=== PATIENT | male | born 1970 | race African-American/Black ===

== ENCOUNTER 2018-09-28 03:00 | Inpatient (IN) | payer MEDICARE, MEDICAID ==
[~2018-09-28] VITALS: Ht 167.6 cm; Wt 82.6 kg
--- NOTE | 2018-09-28 04:42 | NUR ---
PT BIBA, AOX3 C/C OTHER COMPLAINTS, PLACED ON ER BED 3, SEEN AND EVAL BY ER MD JORDAN, LAB WORKS ORDERED, VS STABLE, WILL AWAIT FOR FURTHER EVAL.
[2018-09-28 05:35] LABS: CALCIUM, SERUM 8.9 mg/dL (8.5-10.1); POTASSIUM 4.6 mmol/L (3.5-5.1)
[2018-09-28 05:38] LABS: CREATININE 8.1 mg/dL (0.6-1.3)
[2018-09-28 05:46] LABS: BASOPHILS # (AUTO) 0.2 /CMM (0.0-0.2); BASOPHILS % (AUTO) 2.2 % (0.0-2.0); EOSINOPHILS % (AUTO) 1.3 % (0.0-6.0); HEMATOCRIT 34 % (39-51); HEMOGLOBIN 11.2 g/dL (13.5-17.5); LYMPHOCYTES # (AUTO) 0.6 /CMM (0.8-4.8); LYMPHOCYTES % (AUTO) 7.7 % (20.0-44.0); MEAN CORPUSCULAR HGB CONC 33 g/dl (31.0-36.0); MEAN CORPUSCULAR VOLUME 94 fL (80-96); MONOCYTES # (AUTO) 1.2 /CMM (0.1-1.30); MONOCYTES % (AUTO) 15.3 % (2.0-12.0); NEUTROPHILS # (AUTO) 5.6 /CMM (1.8-8.9); NEUTROPHILS % (AUTO) 73.5 % (43.0-81.0); PLATELET COUNT (AUTO) 149 /CMM (150-450); RED BLOOD CELL COUNT(AUTO) 3.64 MIL/uL (4.5-6.0); WHITE BLOOD COUNT (AUTO) 7.6 K/uL (4.3-11.0)
--- NOTE | 2018-09-28 07:07 | NUR ---
CALLED [facility] FOR PANEL CALL AND ASIA FOSTER WAS PAGED.
--- NOTE | 2018-09-28 09:26 | NUR ---
REPORT GIVEN TO ROSIE HARDIN
--- NOTE | 2018-09-28 09:45 | NUR ---
RN NOTE RECEIVED PT FROM ER, AMBULATORY, AOX1, DOES NOT KNOW WHERE HE IS, WHERE HE LIVES, CLAIMS THAT HE DID NOT GET HD, DOES NOT WHY, AND WAS LEFT ON THE STREET DUE TO HD CENTER WAS CLOSED. VS STABLE, NO IV ACCESS, R UA AV SHUNT, INTACT, BRUIT PRESENT, ONLY ONE SCAB ON RIGHT FOOT NOTED. POOR HISTORIAN. WILL FOLLOW UP WITH MD, HD CENTER LATER. CALLL IGHT WITHIN REACH, BED IN LOCKED AND LOW POSITION, SIDE RAILS UPX2.
[2018-09-28 10:00] VITALS: BP 143/93
[2018-09-28 12:00] VITALS: BP 138/91
[2018-09-28] MEDS ORDERED: DEXTROSE 50%-WATER 50 ML DISP.SYRIN IV PRN (12:30)
[2018-09-28] MEDS: BLOOD SUGAR DIAGNOSTIC 1 EACH STRIP IN SCH ×3 (13:23→21:50)
[2018-09-28] MEDS: INSULIN REGULAR, HUMAN 100 UNIT/ML 3 ML VIAL SQ PRN ×2 (13:25→22:05)
[2018-09-28 16:00] VITALS: BP 155/97
[2018-09-28] MEDS ORDERED: Z GUARD REMEDY 2 OZ OINT TP PRN (17:00)
[2018-09-28] MEDS ORDERED: ONDANSETRON HCL/PF 4 MG/2 ML VIAL IVP PRN (17:00)
[2018-09-28] MEDS ORDERED: MAGNESIUM HYDROXIDE 30 ML UDC PO PRN (17:00)
[2018-09-28] MEDS ORDERED: ACETAMINOPHEN 325 MG TABLET PO PRN (17:00)
[2018-09-28] MEDS ORDERED: HYDROCODONE/APAP 5/325MG 1 EACH TABLET PO PRN (17:00)
--- NOTE | 2018-09-28 18:04 | NUR ---
RN NOTE PT HAS NO IV ACCESS, VERY HARD STICK, IV ATTEMPTED X1, MD AWARE, NO NEED FOR IV AT THIS TIME, POSSIBLE D/C TOMORROW. PT STABLE, HAD HD TODAY 2500 ML OUT.
--- NOTE | 2018-09-28 18:14 | NUR ---
RN NOTE PT REFUSED BLOOD GLUCOSE CHECK AT 1730, RISKS AND BENEFITS EXPLAINED, PT STILL REFUSED, STATING "I AM DOING FINE."
[2018-09-28 20:00] VITALS: BP 150/99
--- NOTE | 2018-09-28 20:00 | NUR ---
RN/MS NOTES: RECEIVED PT. IN BED ALERT AND ORIENTED X 1. DENIES ANY C/O CHEST PAIN OR SOB AT PRESENT. CONTINENT OF B/B. PT. HAS AV SHUNT ON BOOGIE INTACT W/ + BRUIT AND THRILL. CALL LIGHT W/ REACH. ALL NEEDS MEET. WILL CONTINUE TO MONITOR. BEDS LOCKED AND IN LOW POSITION.
[2018-09-28] MEDS: ZOLPIDEM TARTRATE 5 MG TABLET PO PRN (23:36)
[2018-09-29 04:00] VITALS: BP 150/99
--- NOTE | 2018-09-29 07:30 | NUR ---
RN OPENING NOTE PATIENT RECEIVED IN BED AWAKE. PATIENT AWAKE AAOX4. PATIENT HAS NO C/O PAIN, NO S/S OF DISTRESS. NO S/S OF /SOB. RN WILL CONTINUE TO MONITOR CLOSELY. EKG DONE AT BEDSIDE. ALL NEEDS ATTENDED, BED IN LOWEST LOCKED POSITION, SIDE RAILS UP X 2 CALL LIGHT AT HAND.
--- NOTE | 2018-09-29 07:32 | NUR ---
RN OPENING NOTES RECEIVED PT AWAKE IN BED IN NO ACUTE SIGNS OF DISTRESS. A/O X2-3. ABLE TO MAKE NEEDS KNOWN, NO C/O PAIN OR DISCOMFORTS AT THIS TIME. PT NOTED TO BE FORGETFUL AND DOESN'T KNOW WHERE HE LIVES. ON 02 VIA N/C @ 1LPM, BREATHING EVEN AND UNLABORED. PT WITH BOOGIE AV SHUNT WITH POSITIVE BRUIT SOUNDS AND NO ACTIVE BLEEDING NOTED AT SITE. SAFETY PRECAUTIONS IN PLACE. BED IN LOW LOCKED POSITION WITH SR UP X2. CALL LIGHT WITHIN REACH. WILL CONTINUE TO MONITOR.
--- NOTE | 2018-09-29 07:41 | NUR ---
RN/MS NOTES: REPORT GIVEN TO NEXT SHIFT NURSE FOR JANICE.
[2018-09-29] MEDS: BLOOD SUGAR DIAGNOSTIC 1 EACH STRIP IN SCH ×4 (07:46→21:25)
[2018-09-29] MEDS: INSULIN REGULAR, HUMAN 100 UNIT/ML 3 ML VIAL SQ PRN ×3 (07:47→21:25)
[2018-09-29 08:00] VITALS: BP 133/91
--- NOTE | 2018-09-29 10:12 | NUR ---
WOUND CARE CONSULT: PT PRESENTS WITH RT DORSAL FOOT DRY SCAB, PRESENT ON ADMISSION. NO DRAINAGE OR TENDERNESS NOTED. PT IS CONTINENT AT THIS TIME. ALL SKIN PROTECTION RECOMMENDATIONS DISCUSSED WITH NURSING STAFF. WILL SEE PRN. CURRENT MAUDE SCORE IS 20. Addendum: 09/29/18 at 1014 by DIANNA MALIN WNDNU Amended: Links added.
--- NOTE | 2018-09-29 10:45 | NUR ---
SW has spoken with case management regarding consult received for pt. CM will process pt's consult.
--- NOTE | 2018-09-29 12:04 | NUR ---
RN NOTES RECEIVED CALL FROM [facility] AND STATED THAT PT LIVES IN [facility]. SHE STATED THAT PT HAD SCHEDULED DIALYSIS ON 09/27/2018 BUT DIDN'T SHOW UP.
--- NOTE | 2018-09-29 13:29 | NUR ---
RN NOTES RECEIVED CALL FROM [facility] DEP'T THAT PT IS POSITIVE OF MRSA OF RIGHT NARE. CONTACT PRECAUTIONS INITIATED. INFORMED CHARGE NURSE. WILL CONTINUE TO MONITOR
[2018-09-29 16:00] VITALS: BP 131/90
[2018-09-29 18:03] LABS: BASOPHILS # (AUTO) 0.1 /CMM (0.0-0.2); EOSINOPHILS % (AUTO) 0.7 % (0.0-6.0); HEMATOCRIT 33 % (39-51); HEMOGLOBIN 10.5 g/dL (13.5-17.5); LYMPHOCYTES # (AUTO) 3.9 /CMM (0.8-4.8); LYMPHOCYTES % (AUTO) 59.9 % (20.0-44.0); MEAN CORPUSCULAR HGB CONC 32 g/dl (31.0-36.0); MEAN CORPUSCULAR VOLUME 93 fL (80-96); MONOCYTES # (AUTO) 0.4 /CMM (0.1-1.30); MONOCYTES % (AUTO) 5.7 % (2.0-12.0); NEUTROPHILS # (AUTO) 2.1 /CMM (1.8-8.9); NEUTROPHILS % (AUTO) 32.7 % (43.0-81.0); PLATELET COUNT (AUTO) 154 /CMM (150-450); RED BLOOD CELL COUNT(AUTO) 3.53 MIL/uL (4.5-6.0); WHITE BLOOD COUNT (AUTO) 6.4 K/uL (4.3-11.0)
[2018-09-29 18:19] LABS: ALBUMIN 3.3 g/dL (3.4-5.0); BILIRUBIN,TOTAL 0.5 mg/dL (0.2-1.0); POTASSIUM 5.2 mmol/L (3.5-5.1); TOTAL PROTEIN, SERUM 7.5 g/dL (6.4-8.2)
--- NOTE | 2018-09-29 18:33 | NUR ---
RN CLOSING NOTES PATIENT IN BED AWAKE AND WATCHING TV. HOB ELEVATED. A/O X2-3. ABLE TO MAKE NEEDS KNOWN. PT WITH PERIODS OF FORGETFULNESS NOTED, RE-ORIENTED PRN. ON SUPPLEMENTAL 02 VIA N/C @ 1LPM, TOLERATING WELL WITH NO ACUTE RESPIRATORY DISTRESS NOTED. BOOGIE AV SHUNT NOTED WITH POSITIVE BRUIT SOUNDS AND NO ACTIVE BLEEDING NOTED AT SITE. ALL SAFETY PRECAUTIONS IN PLACE. BED IN LOW LOCKED POSITION WITH SR UP X2. CALL LIGHT WITHIN REACH. ALL NEEDS AND CARE ATTENDED WELL. WILL ENDORSE TO [facility] DRIVER NURSE FOR JANICE.
--- NOTE | 2018-09-29 18:35 | NUR ---
RN NOTES/LAB RESULTS RECEIVED CALL FROM LAB THAT PT'S HAS ELEVATED CREATININE 8.0, LOT ATTENDANT CRISTIAN MADE AWARE WITH NO NEW ORDERS MADE AT THIS TIME. WILL CONTINUE TO MONITOR.
--- NOTE | 2018-09-29 19:10 | NUR ---
MS/RN INITIAL NOTES RECEIVED PT IN BED, A/OX2, ON 1L O2 VIA NC, TOLERATING WELL, NO SOB NOTED. DENIES PAIN AT THIS TIME. HOB ELEVATED. NO IV ACCESS NOTED. MD AWARE PER AM RN. WITH BOOGIE AV SHUNT. SAFETY MEASURES IN PLACED. CALL LIGHT WITHIN EASY REACH. WILL CONT TO MONITOR
[2018-09-29 20:00] VITALS: BP 144/102
[2018-09-29] MEDS: MUPIROCIN OINT 2% 22 GM TUBE SCH (20:49)
[2018-09-30] MEDS: ZOLPIDEM TARTRATE 5 MG TABLET PO PRN ×2 (00:47→22:37)
[2018-09-30 04:00] VITALS: BP 143/99
--- NOTE | 2018-09-30 06:45 | NUR ---
RN NOTES PT IN STABLE CONDITION. NO ACUTE CHANGES NOTED THROUGHOUT SHIFT. SAFETY MEASURES OBSERVED AT ALL TIMES. ALL NEEDS ANTICIPATED. ENDORSED TO AM SHIFT RN FOR JANICE
[2018-09-30 08:00] VITALS: BP 134/94
--- NOTE | 2018-09-30 08:00 | NUR ---
MS RN NOTE PATIENT IN BED , ALL NEEDS ATTENDED ON IVF ORDERED. ON RA NO SOB NOTED, RUBI MID LINE IN PLACE , ,BED IN LOWEST AND LOCKED POSITION , BLOOD SUGAR 322 MG\DL INSULIN COVERAGE GIVEN , DILAUDID 2 MG PO GIVEN ORDERED, PLAN OF CARE DISCUSSED WITH PATIENT, WILL CONT TO MONITOR CLOSELY Addendum: 09/30/18 at 1329 by EGO AMARO RN wrong chart as above
--- NOTE | 2018-09-30 08:00 | NUR ---
ms rn note patient in bed , all needs attended ,on 1l of nc , no sob noted , rt upper arm av shunt in place with bruit sound , will have hd today , bed in lowest and locked, plan of care discussed with patent , blood sugar checked 103 mg\ dl ,will cont to monitor closely position ,
[2018-09-30] MEDS: BLOOD SUGAR DIAGNOSTIC 1 EACH STRIP IN SCH ×4 (08:05→21:51)
[2018-09-30] MEDS: MUPIROCIN OINT 2% 22 GM TUBE SCH ×2 (08:05→21:51)
[2018-09-30 08:42] LABS: CALCIUM, SERUM 8.9 mg/dL (8.5-10.1); MAGNESIUM 1.9 mg/dL (1.8-2.4); PHOSPHORUS 3.3 mg/dL (2.5-4.9); POTASSIUM 4.9 mmol/L (3.5-5.1)
[2018-09-30 08:43] LABS: CREATININE 8.5 mg/dL (0.6-1.3)
[2018-09-30 08:45] LABS: BASOPHILS # (AUTO) 0.1 /CMM (0.0-0.2); BASOPHILS % (AUTO) 1.7 % (0.0-2.0); EOSINOPHILS % (AUTO) 1.4 % (0.0-6.0); HEMATOCRIT 34 % (39-51); LYMPHOCYTES % (AUTO) 38.7 % (20.0-44.0); MEAN CORPUSCULAR HGB CONC 32 g/dl (31.0-36.0); MEAN CORPUSCULAR VOLUME 94 fL (80-96); MONOCYTES # (AUTO) 0.8 /CMM (0.1-1.30); MONOCYTES % (AUTO) 10.9 % (2.0-12.0); NEUTROPHILS # (AUTO) 3.7 /CMM (1.8-8.9); NEUTROPHILS % (AUTO) 47.3 % (43.0-81.0); PLATELET COUNT (AUTO) 153 /CMM (150-450); RED BLOOD CELL COUNT(AUTO) 3.63 MIL/uL (4.5-6.0); WHITE BLOOD COUNT (AUTO) 7.7 K/uL (4.3-11.0)
[2018-09-30 09:00] LABS: LYMPHOCYTES % (MANUAL) 38 % (16-48); MONOCYTES % (MANUAL) 10 % (0-11.0); NEUTROPHILS % (MANUAL) 52 (42-76)
--- NOTE | 2018-09-30 09:08 | NUR ---
MS HARDIN NOTE PER DR ALYSE MONCADA TO HAVE DOUBLE PORTION PER [facility] Addendum: 09/30/18 at 1118 by GEO AMARO RN ok to have double portion of food per patient request
[2018-09-30 10:00] VITALS: BP 134/94
--- NOTE | 2018-09-30 11:19 | NUR ---
MS RN NOTE HD STARTED ORDERED ,WILL CONT TO MONITOR CLOSE
--- NOTE | 2018-09-30 12:26 | NUR ---
MS RN NOTE PER FRANC DALTON DNP OK TO HAVE DOUBLE PORTION RENAL DIET
--- NOTE | 2018-09-30 13:48 | NUR ---
MS RN NOTE STILL ON HD , WILL F\U
--- NOTE | 2018-09-30 13:59 | NUR ---
MS RN NOTE HD COMPLETED. 2L OF FLUIDS OUT , BP 147/99 HR 97, WILL CONT TO MONITOR CLOSELY
[2018-09-30 16:00] VITALS: BP 130/96
[2018-09-30] MEDS: INSULIN REGULAR, HUMAN 100 UNIT/ML 3 ML VIAL SQ PRN ×2 (17:47→21:47)
--- NOTE | 2018-09-30 19:10 | NUR ---
MS/RN INITIAL NOTES RECEIVED PT IN BED, A/OX3. NO C/O PAIN AT THIS TIME. ON ROOM AIR TOLERATING WELL. NO SOB NOTED. NO C/O PAIN AT THIS TIME. BOOGIE AV SHUNT + BRUIT AND THRILL. NO BLEEDING ON SITE NOTED. SAFETY MEASURES IN PLACED CALL LIGHT WITHIN EASY REACH. WILL CONT TO MONITOR
[2018-09-30 20:00] VITALS: BP 143/98
--- NOTE | 2018-09-30 22:30 | NUR ---
RN NOTES RECEIVED PT IN BED, AWAKE, ALERT AND VERBALLY RESPONSIVE. PT NOTED WITH NO SOB, BREATHING EVEN AND UNLABORED. VERBALIZED HE NEEDS HIS SLEEPING PILL. ALL PATIENT' S NEEDS ATTENDED TO AT THIS TIME. PLACED CALL LIGHT WITHIN EASY REACH. WILL CONTINUE TO MONITOR PT.
[2018-10-01 04:00] VITALS: BP 133/91
--- NOTE | 2018-10-01 06:40 | NUR ---
RN CLOSING NOTES PATIENT IN BED, ASLEEP BUT EASILY AROUSABLE, NO DISTRESS AT THIS TIME, NO SOB, BREATHING EVEN AND UNLABORED. PT DENIES PAIN, PLACED CALL LIGHT WITHIN EASY REACH AND BED IN LOW POSITION AND LOCKED IN PLACE. WILL ENDORSE TO AM SHIFT NURSE FOR CONTINUITY OF CARE.
[2018-10-01 06:58] LABS: BASOPHILS # (AUTO) 0.1 /CMM (0.0-0.2); BASOPHILS % (AUTO) 2.2 % (0.0-2.0); EOSINOPHILS % (AUTO) 1.3 % (0.0-6.0); HEMATOCRIT 33 % (39-51); HEMOGLOBIN 10.8 g/dL (13.5-17.5); LYMPHOCYTES # (AUTO) 2.1 /CMM (0.8-4.8); LYMPHOCYTES % (AUTO) 37.1 % (20.0-44.0); MEAN CORPUSCULAR HGB CONC 33 g/dl (31.0-36.0); MEAN CORPUSCULAR VOLUME 93 fL (80-96); MONOCYTES # (AUTO) 0.6 /CMM (0.1-1.30); MONOCYTES % (AUTO) 11.1 % (2.0-12.0); NEUTROPHILS # (AUTO) 2.8 /CMM (1.8-8.9); NEUTROPHILS % (AUTO) 48.3 % (43.0-81.0); PLATELET COUNT (AUTO) 136 /CMM (150-450); RED BLOOD CELL COUNT(AUTO) 3.58 MIL/uL (4.5-6.0); WHITE BLOOD COUNT (AUTO) 5.8 K/uL (4.3-11.0)
[2018-10-01 07:26] LABS: ALBUMIN 3.5 g/dL (3.4-5.0); BILIRUBIN,TOTAL 0.6 mg/dL (0.2-1.0); CALCIUM, SERUM 8.9 mg/dL (8.5-10.1); PHOSPHORUS 3.5 mg/dL (2.5-4.9); POTASSIUM 4.9 mmol/L (3.5-5.1); TOTAL PROTEIN, SERUM 7.7 g/dL (6.4-8.2)
[2018-10-01 07:27] LABS: CREATININE 7.8 mg/dL (0.6-1.3)
[2018-10-01 07:29] LABS: LYMPHOCYTES % (MANUAL) 24 % (16-48); MONOCYTES % (MANUAL) 11 % (0-11.0); NEUTROPHILS % (MANUAL) 62 (42-76)
[2018-10-01 07:30] LABS: EOSINOPHILS % (MANUAL) 3 % (0-4)
[2018-10-01 08:00] VITALS: BP 150/105
[2018-10-01] MEDS: BLOOD SUGAR DIAGNOSTIC 1 EACH STRIP IN SCH ×5 (08:23→21:23)
[2018-10-01] MEDS: MUPIROCIN OINT 2% 22 GM TUBE SCH ×3 (08:27→21:20)
[2018-10-01] MEDS: INSULIN REGULAR, HUMAN 100 UNIT/ML 3 ML VIAL SQ PRN ×3 (08:27→17:06)
--- NOTE | 2018-10-01 08:45 | NUR ---
MS RN INITIAL NOTES Patient is up sitting in bed, had breakfast with fair appetite. Oxygen sat 92% on 2L/min via NC, denies pain. Patient is A/O x2 with confusion, maintained safety, will cont to monitor.
[2018-10-01 17:33] VITALS: BP 145/110
[2018-10-01 18:00] VITALS: BP 117/73
--- NOTE | 2018-10-01 18:20 | NUR ---
MS RN CLOSING NOTES Patient ambulating independently, standby assist. ACCU check ACHS with insulin parameters. Had shower today, denies any pain. Good appetite. Remained on contact precaution MRSA nares, PPE utilized. Creatinine trending down, HD in am, nephrology following. Will endorse to oncoming RN.
--- NOTE | 2018-10-01 20:00 | NUR ---
RN INITIAL NOTES RECEIVED PT IN BED, A/OX3. NO C/O PAIN AT THIS TIME. ON ROOM AIR TOLERATING WELL. NO SOB NOTED. NO IV. BOOGIE AV SHUNT + BRUIT AND THRILL. NO BLEEDING ON SITE NOTED. SAFETY MEASURES IN PLACED CALL LIGHT WITHIN EASY REACH. WILL CONT TO MONITOR.
--- NOTE | 2018-10-01 21:00 | NUR ---
RN NOTES PT REFUSED ACCU CHECK AND NASAL OINTMENT. CHARGE NURSE MADE AWARE.
[2018-10-01] MEDS: ZOLPIDEM TARTRATE 5 MG TABLET PO PRN (23:37)
[2018-10-02 06:30] LABS: BASOPHILS # (AUTO) 0.2 /CMM (0.0-0.2); BASOPHILS % (AUTO) 2.6 % (0.0-2.0); EOSINOPHILS % (AUTO) 0.8 % (0.0-6.0); HEMATOCRIT 33 % (39-51); HEMOGLOBIN 10.6 g/dL (13.5-17.5); LYMPHOCYTES # (AUTO) 3.2 /CMM (0.8-4.8); LYMPHOCYTES % (AUTO) 51.9 % (20.0-44.0); MEAN CORPUSCULAR HGB CONC 32 g/dl (31.0-36.0); MEAN CORPUSCULAR VOLUME 93 fL (80-96); MONOCYTES # (AUTO) 0.5 /CMM (0.1-1.30); MONOCYTES % (AUTO) 7.6 % (2.0-12.0); NEUTROPHILS # (AUTO) 2.3 /CMM (1.8-8.9); NEUTROPHILS % (AUTO) 37.1 % (43.0-81.0); PLATELET COUNT (AUTO) 132 /CMM (150-450); RED BLOOD CELL COUNT(AUTO) 3.52 MIL/uL (4.5-6.0); WHITE BLOOD COUNT (AUTO) 6.2 K/uL (4.3-11.0)
--- NOTE | 2018-10-02 06:41 | NUR ---
RN CLOSING NOTES PATIENT IN BED, ASLEEP BUT EASILY AROUSABLE, NO DISTRESS AT THIS TIME, NO SOB, BREATHING EVEN AND UNLABORED, PLACED CALL LIGHT WITHIN EASY REACH AND BED IN LOW POSITION AND LOCKED IN PLACE. WILL ENDORSE TO AM SHIFT NURSE FOR CONTINUITY OF CARE.
[2018-10-02 06:43] LABS: CALCIUM, SERUM 8.4 mg/dL (8.5-10.1); MAGNESIUM 2.1 mg/dL (1.8-2.4); PHOSPHORUS 3.8 mg/dL (2.5-4.9); POTASSIUM 5.2 mmol/L (3.5-5.1)
--- NOTE | 2018-10-02 07:00 | NUR ---
TRANSPLANT RN OPENING NOTES RECEIVED PT IN BED, A/OX3. NO C/O PAIN AT THIS TIME. ON ROOM AIR TOLERATING WELL. NO SOB NOTED. NO IV. BOOGIE AV SHUNT + BRUIT AND THRILL. NO BLEEDING ON SITE NOTED. SAFETY MEASURES IN PLACED CALL LIGHT WITHIN EASY REACH. WILL CONT TO MONITOR.
[2018-10-02 07:04] LABS: CREATININE 8.5 mg/dL (0.6-1.3)
[2018-10-02 08:00] VITALS: BP 143/103
[2018-10-02] MEDS: BLOOD SUGAR DIAGNOSTIC 1 EACH STRIP IN SCH ×4 (08:15→21:21)
[2018-10-02] MEDS: MUPIROCIN OINT 2% 22 GM TUBE SCH ×2 (10:19→21:19)
[2018-10-02] MEDS ORDERED: SIMETHICONE 80 MG TAB.CHEW PO PRN (11:30)
[2018-10-02] MEDS: INSULIN REGULAR, HUMAN 100 UNIT/ML 3 ML VIAL SQ PRN ×3 (12:36→21:26)
[2018-10-02 16:00] VITALS: BP 148/103
--- NOTE | 2018-10-02 19:07 | NUR ---
GI PHYSICIAN MED SURG CLOSING NOTES REPORT GIVEN TO ONCTG FREY RN.PT IN BED, A/OX3. NO C/O PAIN AT THIS TIME.ON 2 LTRS VIA NC TOLERATING WELL. NO SOB NOTED.ALL MEDICATIONS ADMINISTERED ORDERED WITH NO ADVERSE REACTION NO IV. BOOGIE AV SHUNT + BRUIT AND THRILL. NO BLEEDING ON SITE NOTED. SAFETY MEASURES IN PLACED CALL LIGHT WITHIN EASY REACH. JANICE
[2018-10-02 20:00] VITALS: BP 161/98
--- NOTE | 2018-10-02 20:00 | NUR ---
RN INITIAL NOTES RECEIVED PT IN BED, A/OX3. NO C/O PAIN AT THIS TIME. ON ROOM AIR TOLERATING WELL. NO SOB NOTED. NO IV. BOOGIE AV SHUNT + BRUIT AND THRILL. NO BLEEDING ON SITE NOTED. PT AMBULATE AT [facility]. ALL SAFETY MEASURES IN PLACED, CALL LIGHT WITHIN EASY REACH. WILL CONT TO MONITOR.
[2018-10-02] MEDS: ZOLPIDEM TARTRATE 5 MG TABLET PO PRN (23:57)
--- NOTE | 2018-10-03 06:18 | NUR ---
RN CLOSING NOTES PT IN BED, A/OX3. NO C/O PAIN AT THIS TIME.ON 2 LTRS VIA NC TOLERATING WELL. NO SOB NOTED.ALL MEDICATIONS ADMINISTERED ORDERED. NO IV. BOOGIE AV SHUNT + BRUIT AND THRILL. NO BLEEDING ON SITE NOTED. SAFETY MEASURES IN PLACED CALL LIGHT WITHIN EASY REACH. WILL ENDORSE TO AM RN.
--- NOTE | 2018-10-03 07:00 | NUR ---
ms rn notes received pt in bed, asleep but arousable. pt has no concerns for today. is on 2l nc. refused o2 sat check per play therapist. pt has wheelchair at bedside. a/ox2. not in distress. bed in locked/lowest position. call light in reach. will cont to monitor. Addendum: 10/03/18 at 0811 by SHAYNE MEYERS RN [id number] MS RN NOTES received pt in bed, asleep but arousable. pt has no concerns for today. is on 2l nc. refused o2 sat check per play therapist. pt has wheelchair at bedside. a/ox2. not in distress. bed in locked/lowest position. call light in reach. will cont to monitor.
[2018-10-03 08:00] VITALS: BP 131/90
[2018-10-03] MEDS: BLOOD SUGAR DIAGNOSTIC 1 EACH STRIP IN SCH ×2 (08:48→12:30)
[2018-10-03] MEDS: MUPIROCIN OINT 2% 22 GM TUBE SCH (09:19)
[2018-10-03] MEDS: INSULIN REGULAR, HUMAN 100 UNIT/ML 3 ML VIAL SQ PRN ×2 (09:21→12:38)
--- NOTE | 2018-10-03 10:00 | NUR ---
ms rn notes pt roaming hallways and lobby area after educating patient that he is infected and needs to stay in the room or wear a mask. pt refused, telling nurse: "F... you, i dont care what you say." charge nurse and security notified.
[2018-10-03] MEDS ORDERED: Blood Sugar Diagnostic IN (11:53)
[2018-10-03] MEDS ORDERED: INSU100V28 SQ (11:53)
[2018-10-03] MEDS ORDERED: SIME80TA15 PO (11:53)
[2018-10-03] MEDS ORDERED: ALLA266C2 TP (11:53)
[2018-10-03] MEDS ORDERED: MUPI22OI7 (11:53)
[2018-10-03] MEDS ORDERED: ACET325T53 PO (11:53)
--- NOTE | 2018-10-03 13:00 | NUR ---
MS RN NOTES LAB REPORTED PT REFUSED BLOOD DRAW.
--- NOTE | 2018-10-03 13:52 | NUR ---
ms journalism professor notes discharge instructions given to patient/belongings signed and with patient. report called to Geronimo Patton at [facility]. ambulance crew with patient. pt has no iv access. id band removed. discharge pic taken; not clear due to patient constantly moving feet. all needs attended.
== END 2018-10-03 14:00 | DRG 470 ==
LOC: ER 03:10 → TELE1 09:03 → MEDSG1 09-29 00:20
PROVIDERS: ADMIT Nurse Practitioner Acute Care; ATTEND Nurse Practitioner Acute Care
PROC: 5A1D70Z Performance of Urinary Filtration, Intermittent, Less than 6 Hours Per Day (ICD-10-PCS; principal; 2018-09-28)
PROC: 5A1D70Z Performance of Urinary Filtration, Intermittent, Less than 6 Hours Per Day (ICD-10-PCS; 2018-09-30)
PROC: 5A1D70Z Performance of Urinary Filtration, Intermittent, Less than 6 Hours Per Day (ICD-10-PCS; 2018-10-02)
DX: I13.11 Hypertensive heart and chronic kidney disease without heart failure, with stage 5 chronic kidney disease, or end stage renal disease (principal); G93.41 Metabolic encephalopathy; E11.22 Type 2 diabetes mellitus with diabetic chronic kidney disease; N18.6 End stage renal disease; E11.65 Type 2 diabetes mellitus with hyperglycemia; Z99.2 Dependence on renal dialysis; D63.8 Anemia in other chronic diseases classified elsewhere; Z95.0 Presence of cardiac pacemaker; F80.9 Developmental disorder of speech and language, unspecified; Z85.028 Personal history of other malignant neoplasm of stomach; Z85.038 Personal history of other malignant neoplasm of large intestine; I51.7 Cardiomegaly
CPT/HCPCS: 36415; 71045-TC; 80048-TC; 80053-TC; 80061-TC; 82962-TC; 83735-TC; 84100-TC; 85025-TC; 85730-TC; 87081-TC; 90935-TC; A4606; G0378; J1815; Z7610

== ENCOUNTER 2018-10-27 02:45 | Emergency (ER) | payer MEDICARE, MEDICAID ==
[~2018-10-27] VITALS: Ht 185.4 cm; Wt 88.5 kg
[~2018-10-27 02:45] MED LIST: ACET325T53 PO; ALLA266C2 TP; Blood Sugar Diagnostic IN; INSU100V28 SQ; MUPI22OI7; SIME80TA15 PO
[2018-10-27 02:48] VITALS: BP 167/97
--- NOTE | 2018-10-27 03:55 | NUR ---
[facility] ETA 30MINS TRIP [id number]
== END 2018-10-27 05:40 | disposition home or self-care (01) ==
LOC: ER 02:47
DX: E11.22 Type 2 diabetes mellitus with diabetic chronic kidney disease (principal); I12.0 Hypertensive chronic kidney disease with stage 5 chronic kidney disease or end stage renal disease; N18.6 End stage renal disease; G93.40 Encephalopathy, unspecified; J44.9 Chronic obstructive pulmonary disease, unspecified; F41.9 Anxiety disorder, unspecified; Z85.028 Personal history of other malignant neoplasm of stomach; Z79.4 Long term (current) use of insulin; Z95.0 Presence of cardiac pacemaker; Z98.890 Other specified postprocedural states